=== PATIENT | male | born 1980 | race Caucasian/White ===

== ENCOUNTER 2018-01-01 10:57 | Emergency (ER) | payer OTHER ==
[~2018-01-01] VITALS: Ht 177.8 cm; Wt 145.1 kg
[2018-01-01] MEDS ORDERED: ATENOLOL50 MG (11:04)
== END 2018-01-01 12:01 | disposition home or self-care (01) ==
LOC: ER 10:57
DX: S60.211A Contusion of right wrist, initial encounter (principal); W18.39XA Other fall on same level, initial encounter; Y93.89 Activity, other specified; Y92.59 Other trade areas as the place of occurrence of the external cause; Y99.8 Other external cause status